=== PATIENT | female | born 1950 | race Caucasian/White ===

== ENCOUNTER 2022-06-11 12:01 | Emergency (ER) | payer OTHER, MEDICAID ==
[~2022-06-11] VITALS: Ht 151.1 cm; Wt 66.7 kg
[2022-06-11 12:04] VITALS: BP 180/68
[2022-06-11] MEDS ORDERED: KETOROLAC 60 MG/2 ML VIAL IM ONE (12:15)
--- NOTE | 2022-06-11 13:54 | NUR ---
PT C/O WRIST PAIN S/P FALL. DENIES LOC.
--- NOTE | 2022-06-11 15:01 | NUR ---
PT BACK FROM CT
[2022-06-11] MEDS ORDERED: ACET-8386 PO (15:43)
[2022-06-11] MEDS ORDERED: IBUP-2213 PO (15:43)
[2022-06-11 16:47] VITALS: BP 143/70
--- NOTE | 2022-06-11 16:47 | NUR ---
Patient discharged with v/s stable. Written and verbal after care instructions FOR RADIAL FRACTURE given and explained. Patient alert, oriented and verbalized understanding of instructions. Ambulatory with steady gait. All questions addressed prior to discharge. ID band removed. Patient advised to follow up with PMD. Rx of HYDROCODONE AND IBUPROFEN given. Opportunity to ask questions provided and answered.
== END 2022-06-11 16:47 | disposition home or self-care (01) ==
LOC: MED 12:01
DX: S52.511A Displaced fracture of right radial styloid process, initial encounter for closed fracture (principal); M25.561 Pain in right knee; W18.30XA Fall on same level, unspecified, initial encounter; Y93.89 Activity, other specified; Y92.89 Other specified places as the place of occurrence of the external cause; Y99.8 Other external cause status
CPT/HCPCS: 29105; 73030; 73080; 73110; 73200; 73562; 96372; 99284; J1885